=== PATIENT | male | born 1980 | race Caucasian/White ===

== ENCOUNTER 2019-05-18 10:55 | Day surgery (SDC) | payer OTHER, SELFPAY ==
[2019-05-18] VITALS (7 sets, daily range): BP systolic 123–135; BP diastolic 72–89; PULSE 74–88; RESP 12–20; TEMP 36.1–36.7; O2SAT 96–99; BMI 45.3
--- NOTE | 2019-05-18 13:36 | PM.PREOP ---
Pre-operative Note Interval Note History & Physical reviewed/Exam performed by Physician: Yes Changes to H&P: No H&P completed within 30 days and has changed as indicated here:: No changes to H&P on file.
--- NOTE | 2019-05-18 14:01 | DI.RAD.S_ITS ---
PROCEDURE: XR KUB INDICATIONS: left renal calculus TECHNIQUE: One view of the abdomen acquired. COMPARISON: [facility], CT, CT KUB, 04/24/2019, 7:32. FINDINGS: Surgical changes and devices: Left-sided ureteral stent is again evident, which appears to be in appropriate position. Bowel: Bowel gas pattern is normal. No air-filled distended small bowel loops are evident demonstrating air-fluid levels to suggest a bowel obstruction. Soft tissues: A moderate sized ovoid calcification along the inferior border of the left kidney is unchanged since the most recent CT. No definite calculi are seen along the course of the left ureter.. Visualized solid organ contours appear normal in size. Bones: No suspicious bony lesions. IMPRESSION: Unchanged inferior left renal calculus. Dictated by: Jack Dow M.D. on 05/18/2019 at 13:38 Approved by: Jack Dow M.D. on 05/18/2019 at 13:39
[2019-05-18] MEDS: LACTATED RINGERS 1,000 ML 42 ML IV (14:29)
--- NOTE | 2019-05-18 15:53 | SUR.OPER ---
Supine on padded OR bed, head on pillow, arms secured on padded arm boards at <90 degrees abduction, legs uncrossed, safety belt at thigh, tape over blanket over lower legs.
--- NOTE | 2019-05-18 16:42 | PM.OP.1 ---
Operative Date/Time/Diagnoses Date of procedure: 05/18/19 Time of procedure: 16:42 Pre-op diagnosis: 1. 12 mm left renal calculus. 2. History of left renal colic. 3. Retained left ureteral stent. Post-op diagnosis: same Procedure & Clinicians Same procedure as scheduled: Yes
--- NOTE | 2019-05-18 18:13 | P.OP_ITS ---
Operative Date/Time/Diagnoses Date of procedure: 05/18/19 Time of procedure: 18:14 Pre-op diagnosis: 1.2 cm left renal calculus. History of left renal colic. Retained left ureteral stent. Post-op diagnosis: same Procedure & Clinicians Procedure: Left extracorporeal shockwave lithotripsy Same procedure as scheduled: Yes Indications: 1. 1.2 cm left renal calculus. 2. History of left renal colic. 3. Retained left ureteral stent. Surgeon: Aamir Bullard Click Yes if Unassisted: Yes Anesthesia Type: General Operative Notes Findings: 12 x 7 mm left lower pole renal calculus. Retained left ureteral stent. Closure Type: not applicable Specimen(s): none sent Estimated Blood Loss (mL): 0 Blood products transfused: none Tourniquet time (min): 0 Procedure in detail: The patient was positioned in supine and was administered general anesthesia. The above-described stone was then localized in the X, Y, and Z planes. Lithotripsy was then commenced at minimal power level for a total of 200 shocks. A 2 minutes pause was then conducted. Lithotripsy was then resumed at minimal power level and gradually increased to a maximal power level of 9. The stone and its fragments were really localize numerous times throughout the case using the fluoroscopy. A total of 2225 shocks were delivered to the stone and its fragments. There was excellent evidence of stone comminution. The patient was then awakened transferred to [facility] and transported to recovery in stable condition. Complications: none Post-operative Condition: stable Disposition: PACU Plan for aftercare: Discharge home
== END 2019-05-18 17:33 | disposition home or self-care (01) ==
PROVIDERS: Referring Provider Specialist; Visit Provider Specialist
PROC: (CPT 50590; principal; 2019-05-18 14:30)
DX: N20.0 Calculus of kidney (principal)
CPT/HCPCS: 50590; 74018; J2250; J2704; J3010